=== PATIENT | male | born 1945 | race Caucasian/White ===

== ENCOUNTER 2019-06-14 10:38 | Observation (INO) ==
[~2019-06-14 10:38] MED LIST: Total Joint Mixture (50 ml) IR ONE
[2019-06-14] MEDS ORDERED: Clindamycin 900 MG/50 ML 900 MG/50 ML IV.SOLN IVPB ONE (11:12)
[2019-06-14] MEDS ORDERED: Ringers Solution, Lactated 1,000 ML IVC SCH ×2 (11:15→16:58)
[2019-06-14] MEDS ORDERED: Lidocaine -MPF 2% 2 ML VIAL ONE (11:36)
[2019-06-14] MEDS ORDERED: Tranexamic Acid 1,000 MG/10 ML VIAL ONE (11:36)
[2019-06-14] MEDS ORDERED: *HR* Propofol 200 MG/20 ML VIAL IVP ONE (11:36)
[2019-06-14] MEDS ORDERED: *HR* FentaNYL (PF) 100 MCG/2 ML VIAL ONE ×3 (11:37→13:52)
[2019-06-14] MEDS ORDERED: Ondansetron ODT 4 MG TAB.RAPDIS SL ONE (11:50)
[2019-06-14] MEDS ORDERED: Acetaminophen IV 1,000 MG/100 ML INFUS..BTL IVPB ONE (11:50)
[2019-06-14] MEDS ORDERED: Pregabalin 75 MG CAPSULE PO ONE (11:50)
[2019-06-14] MEDS ORDERED: Famotidine 20 MG/2 ML VIAL IVP ONE (11:57)
[2019-06-14] MEDS ORDERED: ROPIVACAINE/PF/NS 0.25% 1 EACH SYRINGE INTRAART ONE (11:59)
[2019-06-14] MEDS ORDERED: Ethanol\\Acetic Acid\\Na Ace\\Ben 1,000 ML IRRIG.SOLN IR ONE (12:45)
[2019-06-14] MEDS ORDERED: EPHEDrine 50 MG/ML VIAL ONE (13:28)
[2019-06-14] MEDS ORDERED: Ondansetron 4 MG/2 ML VIAL ONE (13:30)
[2019-06-14] MEDS ORDERED: Dexamethasone 4 MG/ML VIAL ONE (13:30)
[2019-06-14] MEDS ORDERED: *HR* Metoprolol 5 MG/5 ML VIAL IVP ONE (13:48)
[2019-06-14] MEDS ORDERED: *HR* HYDROMORPHONE 2 MG/ML VIAL ONE (14:08)
[2019-06-14] MEDS ORDERED: *HR* Labetalol 20 MG/4 ML SYRINGE IVP PRN (14:57)
[2019-06-14] MEDS ORDERED: Ondansetron 4 MG/2 ML VIAL IVP ONE (14:57)
[2019-06-14] MEDS ORDERED: *HR* Promethazine 25 MG/ML VIAL IVP PRN ×2 (14:57→16:58)
[2019-06-14] MEDS: *HR* HYDROmorphone 2 MG/ML SYRINGE IVP PRN ×6 (15:05→15:43)
[2019-06-14] MEDS: *HR* OxyCODONE Immed Rel 5 MG TABLET PO PRN ×3 (15:10→20:29)
[2019-06-14 15:13] LABS: Hematocrit 48.8 % (37.5-50.1); Hemoglobin 17.3 g/dL (12.9-16.9)
[2019-06-14] MEDS ORDERED: Ketorolac 30 MG/ML VIAL IVP ONE (15:47)
[2019-06-14] MEDS ORDERED: *HR* HYDROmorphone 2 MG/ML SYRINGE IVP PRN (15:47)
[2019-06-14] MEDS ORDERED: cloNIDine HCl 0.1 MG TABLET PO ONE (16:11)
[2019-06-14] MEDS ORDERED: cloNIDine HCl 0.1 MG TABLET ONE (16:12)
[2019-06-14] MEDS ORDERED: HYDROcodone BIT/Homatropine 5 MG TABLET PO PRN (16:58)
[2019-06-14] MEDS ORDERED: Clindamycin 900 MG/50 ML 900 MG/50 ML IV.SOLN IVPB SCH (16:58)
[2019-06-14] MEDS ORDERED: D5% in Water 1,000 ML IVC PRN (16:58)
[2019-06-14] MEDS ORDERED: Dextrose Gel 15 GM/37.5 ML TUBE PO PRN ×2 (16:58)
[2019-06-14] MEDS ORDERED: Naloxone 0.4 MG/ML INJ IVP PRN (16:58)
[2019-06-14] MEDS ORDERED: Sennosides 8.6 MG TABLET PO PRN (16:58)
[2019-06-14] MEDS ORDERED: Temazepam 15 MG CAPSULE PO PRN (16:58)
[2019-06-14] MEDS ORDERED: Ondansetron 4 MG/2 ML VIAL IVP PRN (16:58)
[2019-06-14] MEDS ORDERED: *HR* Dextrose 50 % in Water (Syg) 50 ML SYRINGE IVP PRN (16:58)
[2019-06-14] MEDS ORDERED: MOM Conc 10 ML UD.LIQ PO PRN (16:58)
[2019-06-14] MEDS: Insulin LISPRO 300 UNITS/3 ML VIAL SQ SCH ×2 (18:16→20:30)
[2019-06-14] MEDS: Ascorbic Acid 500 MG TABLET PO SCH (18:32)
[2019-06-14] MEDS: amLODIPine 5 MG TABLET PO SCH (18:32)
[2019-06-14] MEDS: *HR* SitaGLIPtin 25 MG TABLET PO SCH (18:32)
[2019-06-14] MEDS: *HR* Metformin 500 MG TABLET PO SCH (18:46)
[2019-06-14] MEDS: traZODone 50 MG TABLET PO SCH (20:29)
[2019-06-14] MEDS: Gabapentin 300 MG CAPSULE PO SCH (20:29)
[2019-06-15] MEDS ORDERED: Clindamycin 900 MG/50 ML 900 MG/50 ML IV.SOLN IVPB SCH (04:00)
[2019-06-15 04:57] LABS: Basophils % 0.2 %; Hematocrit 40.3 % (37.5-50.1); Immature Granulocytes % 0.6 % (0-4); Lymphocytes # 1.5 K/mcL (0.6-4.6); Lymphocytes % 12.9 %; Mean Corpuscular HGB Conc 34.7 g/dL (31.6-35.5); Mean Corpuscular Hemoglobin 29.4 pg (28.0-33.3); Mean Corpuscular Volume 84.5 fL (83.0-100.0); Mean Platelet Volume 10.7 fL (9.4-12.4); Monocytes # 0.7 K/mcL (0.0-1.3); Monocytes % 6.4 %; Neutrophils # 9.1 K/mcL (1.6-8.9); Platelet Count 211 K/mcL (140-400); Red Blood Count 4.77 M/mcL (4.19-5.50); Red Cell Distribution Width 12.7 % (11.5-14.5); Segmented Neutrophils % 79.9 %; White Blood Count 11.4 K/mcL (4.3-11.1)
[2019-06-15 05:07] LABS: BUN/Creatinine Ratio 21 (6-26); Blood Urea Nitrogen 16 mg/dL (8-23); Carbon Dioxide 26 mEq/L (23-29); Chloride 100 mEq/L (98-107); Glucose 147 mg/dL (70-105); Osmolality,Calculated 284 (280-300); Potassium 4.4 mEq/L (3.5-5.1); Sodium 135 mEq/L (136-145); eGFR For African Americans > 60 (> 60); eGFR For Non-African Americans > 60 (> 60)
[2019-06-15] MEDS: Insulin LISPRO 300 UNITS/3 ML VIAL SQ SCH ×4 (07:40→20:48)
[2019-06-15] MEDS: *HR* OxyCODONE Immed Rel 5 MG TABLET PO PRN ×3 (09:13→23:30)
[2019-06-15] MEDS: Gabapentin 300 MG CAPSULE PO SCH ×2 (09:13→19:43)
[2019-06-15] MEDS: Multivit/Ca/Min/Fe/FA 1 TAB TABLET PO SCH (09:13)
[2019-06-15] MEDS: *HR* Metformin 500 MG TABLET PO SCH ×2 (09:13→17:22)
[2019-06-15] MEDS: Ascorbic Acid 500 MG TABLET PO SCH ×2 (09:14→17:22)
[2019-06-15] MEDS: *HR* Enoxaparin 30 MG/0.3 ML SYRINGE SQ SCH ×2 (12:41→17:25)
[2019-06-15] MEDS: *HR* SitaGLIPtin 25 MG TABLET PO SCH (17:22)
[2019-06-15] MEDS: amLODIPine 5 MG TABLET PO SCH (17:22)
[2019-06-15] MEDS: traZODone 50 MG TABLET PO SCH (19:43)
[2019-06-16] MEDS: *HR* OxyCODONE Immed Rel 5 MG TABLET PO PRN ×5 (04:09→20:33)
[2019-06-16] MEDS: *HR* Enoxaparin 30 MG/0.3 ML SYRINGE SQ SCH ×2 (05:24→16:42)
[2019-06-16 06:43] LABS: Basophils % 0.4 %; Eosinophils # 0.1 K/mcL (0.0-0.6); Eosinophils % 0.6 %; Hematocrit 43.1 % (37.5-50.1); Hemoglobin 14.5 g/dL (12.9-16.9); Immature Granulocytes % 0.6 % (0-4); Lymphocytes # 1.9 K/mcL (0.6-4.6); Lymphocytes % 16.3 %; Mean Corpuscular HGB Conc 33.6 g/dL (31.6-35.5); Mean Corpuscular Hemoglobin 29.4 pg (28.0-33.3); Mean Corpuscular Volume 87.2 fL (83.0-100.0); Mean Platelet Volume 10.9 fL (9.4-12.4); Monocytes # 1.1 K/mcL (0.0-1.3); Monocytes % 9.3 %; Neutrophils # 8.3 K/mcL (1.6-8.9); Platelet Count 214 K/mcL (140-400); Red Blood Count 4.94 M/mcL (4.19-5.50); Red Cell Distribution Width 12.8 % (11.5-14.5); Segmented Neutrophils % 72.8 %; White Blood Count 11.4 K/mcL (4.3-11.1)
[2019-06-16 07:02] LABS: BUN/Creatinine Ratio 22 (6-26); Blood Urea Nitrogen 16 mg/dL (8-23); Calcium 9.3 mg/dL (8.6-10.3); Carbon Dioxide 24 mEq/L (23-29); Chloride 97 mEq/L (98-107); Glucose 154 mg/dL (70-105); Osmolality,Calculated 278 (280-300); Sodium 132 mEq/L (136-145); eGFR For African Americans > 60 (> 60); eGFR For Non-African Americans > 60 (> 60)
[2019-06-16] MEDS: Insulin LISPRO 300 UNITS/3 ML VIAL SQ SCH ×4 (07:41→22:20)
[2019-06-16] MEDS: Gabapentin 300 MG CAPSULE PO SCH ×2 (08:27→20:29)
[2019-06-16] MEDS: Ascorbic Acid 500 MG TABLET PO SCH ×2 (08:27→16:40)
[2019-06-16] MEDS: *HR* Metformin 500 MG TABLET PO SCH ×2 (08:28→16:40)
[2019-06-16] MEDS: Multivit/Ca/Min/Fe/FA 1 TAB TABLET PO SCH (08:28)
[2019-06-16] MEDS: *HR* SitaGLIPtin 25 MG TABLET PO SCH (16:40)
[2019-06-16] MEDS: amLODIPine 5 MG TABLET PO SCH (16:40)
[2019-06-16] MEDS: traZODone 50 MG TABLET PO SCH (20:29)
[2019-06-17] MEDS: *HR* OxyCODONE Immed Rel 5 MG TABLET PO PRN ×3 (05:36→14:34)
[2019-06-17] MEDS: *HR* Enoxaparin 30 MG/0.3 ML SYRINGE SQ SCH (05:36)
[2019-06-17] MEDS: Insulin LISPRO 300 UNITS/3 ML VIAL SQ SCH ×2 (07:39→13:23)
[2019-06-17] MEDS: Gabapentin 300 MG CAPSULE PO SCH (07:40)
[2019-06-17] MEDS: *HR* Metformin 500 MG TABLET PO SCH (07:40)
[2019-06-17] MEDS: Multivit/Ca/Min/Fe/FA 1 TAB TABLET PO SCH (07:40)
[2019-06-17] MEDS: Ascorbic Acid 500 MG TABLET PO SCH (07:40)
[2019-06-17 07:48] LABS: Basophils % 0.4 %; Eosinophils # 0.1 K/mcL (0.0-0.6); Eosinophils % 0.6 %; Hematocrit 43.7 % (37.5-50.1); Hemoglobin 14.6 g/dL (12.9-16.9); Lymphocytes # 1.9 K/mcL (0.6-4.6); Mean Corpuscular HGB Conc 33.4 g/dL (31.6-35.5); Mean Corpuscular Hemoglobin 29.4 pg (28.0-33.3); Mean Corpuscular Volume 88.1 fL (83.0-100.0); Mean Platelet Volume 11.5 fL (9.4-12.4); Monocytes # 1.3 K/mcL (0.0-1.3); Neutrophils # 7.6 K/mcL (1.6-8.9); Platelet Count 219 K/mcL (140-400); Red Blood Count 4.96 M/mcL (4.19-5.50); Red Cell Distribution Width 13.2 % (11.5-14.5); White Blood Count 10.9 K/mcL (4.3-11.1)
[2019-06-17 08:10] LABS: BUN/Creatinine Ratio 28 (6-26); Blood Urea Nitrogen 22 mg/dL (8-23); Calcium 9.9 mg/dL (8.6-10.3); Carbon Dioxide 24 mEq/L (23-29); Chloride 98 mEq/L (98-107); Glucose 151 mg/dL (70-105); Osmolality,Calculated 284 (280-300); Potassium 3.8 mEq/L (3.5-5.1); Sodium 134 mEq/L (136-145); eGFR For African Americans > 60 (> 60); eGFR For Non-African Americans > 60 (> 60)
[2019-06-17 12:04] VITALS: BP 120/71
[2019-06-17 12:07] LABS: Adenovirus Not Detected (Not Detect); Bordetella Pertussis Not Detected (Not Detect); Chlamydophila pneumoniae Not Detected (Not Detect); Coronavirus 229E Not Detected (Not Detect); Coronavirus HKU1 Not Detected (Not Detect); Coronavirus NL63 Not Detected (Not Detect); Coronavirus OC43 Not Detected (Not Detect); Human Metapneumovirus Not Detected (Not Detect); Human Rhinovirus/Enterovirus Not Detected (Not Detect); Influenza A Subtype 2009 H1 Not Detected (Not Detect); Influenza A Untypeable Not Detected (Not Detect); Influenza B Not Detected (Not Detect); Mycoplasma pneumoniae Not Detected (Not Detect); Parainfluenza Virus 1 Not Detected (Not Detect); Parainfluenza Virus 2 Not Detected (Not Detect); Parainfluenza Virus 3 Not Detected (Not Detect); Parainfluenza Virus 4 Not Detected (Not Detect); Respiratory Syncytial Virus Not Detected (Not Detect)
== END 2019-06-17 17:15 ==
LOC: SAMDAY 10:38 → 3NENU 10:38
PROVIDERS: ADMIT Orthopaedic Surgery; ATTEND Orthopaedic Surgery